=== PATIENT | female | born 1960 | race Caucasian/White ===

== ENCOUNTER 2018-10-30 12:51 | Observation (INO) ==
--- NOTE | 2018-10-30 13:29 | History & Physical Report ---
*Admission Date: 10/30/18 *Chief complaint: chest pain *History of present illness: this 58 yo wf dev chest pain and was seen at another hospital and was admitted with unstable angina and had elevated cardiac enz consistent with nonstemi - she was discussed with her card and transfered to [facility] for card eval and heart cath -- [facility] History I have reviewed the patient's past medical history: Yes Medical History: Reports:: Coronary Artery Disease, Diabetes Mellitus Type 2, Gastroesophageal Reflux Disease(GERD), Hyperlipidemia, Hypertension, Migraine, Peripheral Artery Disease Have you ever received a pneumonia vaccine?: Yes Other Surgeries: Yes: CABG (x5), Cardiac Catheterization (06/29/16 1 stent, 2013, 2011, 2010 stenting, 1998 stenting) - *Social History Smoking Status: Never smoker Alcohol Intake: never Family Hx:: Diabetes Review of Systems - Review of Systems Review of systems:: pertinent systems reviewed and negative unless documented below - Constitutional Denies fever(s) - Eyes Denies change in vision - ENT Denies change in voice - *Cardiovascular Reports chest pain at rest, Reports shortness of breath, Reports radiating jaw, neck or arm pain - *Respiratory Denies cough - *Gastrointestinal Denies abdominal pain - *Genitourinary Denies blood in urine - *Musculoskeletal Denies joint pain - Integumentary/Breasts Denies rash - *Neurologic Denies seizure-like activity - Psychiatric Denies anxiety Meds Home Medications Medication Instructions Recorded Confirmed Type albuterol sulfate HFA 90 2 puff INHALATION Q4-6H PRN 01/07/18 10/31/18 History mcg/actuation aerosol inhaler aspirin 81 mg tablet,delayed 81 mg PO DAILY tab 01/07/18 10/30/18 History release atorvastatin 80 mg tablet 80 mg PO HS tab 01/07/18 10/30/18 History carvedilol 3.125 mg tablet 3.125 mg PO BID 01/07/18 10/30/18 History clopidogrel 75 mg tablet 75 mg PO DAILY tab 01/07/18 10/30/18 History fenofibrate 160 mg tablet 160 mg PO DAILY tab 01/07/18 10/30/18 History gabapentin 300 mg capsule 300 mg PO TID 01/07/18 10/30/18 History isosorbide mononitrate ER 60 mg 60 mg PO DAILY 01/07/18 10/30/18 History tablet,extended release 24 hr loratadine 10 mg tablet 10 mg PO DAILY tab 01/07/18 10/30/18 History losartan 50 mg tablet 50 mg PO DAILY tab 01/07/18 10/30/18 History metformin 500 mg tablet 1,000 mg PO BID 01/07/18 10/30/18 History nitroglycerin 0.4 mg sublingual 0.4 mg SUBLINGUAL Q5M PRN 01/07/18 10/31/18 History tablet omeprazole 40 mg capsule,delayed 40 mg PO DAILY cap 01/07/18 10/30/18 History release potassium chloride ER 10 mEq 10 meq PO DAILY tab 01/07/18 10/30/18 History tablet,extended release Allopurinol [Allopurinol 300mg 300 mg PO DAILY 10/30/18 10/30/18 History tablet] Ertugliflozin Pidolate [Steglatro] 15 mg PO DAILY 10/30/18 10/30/18 History Naproxen Sodium [Naprelan] 500 mg PO BID 10/30/18 10/30/18 History raNITIdine HCl [Ranitidine HCl] 150 mg PO BID 10/30/18 10/30/18 History Allergies Allergy/AdvReac Type Severity Reaction Status Date / Time lisinopril AdvReac Verified 06/29/18 12:38 Sulfa (Sulfonamide AdvReac Verified 06/29/18 12:38 Antibiotics) Exam I & O for Last 24 hours: Intake & Output 10/28/18 10/29/18 10/30/18 10/31/18 11:59 11:59 11:59 11:59 Weight 221 lb 5 oz - Constitutional no acute distress, obese - *Routine HEENT Exam Head: Present: normocephalic Eye: Present: EOMI, PERRL ENT: Present: mucous membranes dry - *Routine Neck Exam Present: supple - *Routine Respiratory Exam Present: CTA bilaterally - *Routine Cardiovascular Exam Present: RRR, murmur, S4 - *Routine Abdominal Exam Present: soft - *Routine Extremities Exam Present: full ROM. Absent: calf tenderness - *Routine Skin Exam Present: intact - *Routine Neurological Exam Present: alert, oriented X3, CN II-XII intact - Routine Psychiatric Exam Present: normal affect Assessment and Plan (1) Obesity Current visit: Yes Status: Acute Qualifiers: Obesity type: due to excess calories Obesity classification: adult class 3 (BMI >= 40) Serious obesity comorbidity presence: with serious comorbidity Body mass index: BMI 40.0-44.9 Qualified Code(s): E66.01 - Morbid (severe) obesity due to excess calories; Z68.41 - Body mass index (BMI) 40.0-44.9, adult Category: Medical Code(s): E66.9 - Obesity, unspecified (2) NSTEMI (non-ST elevated myocardial infarction) Current visit: Yes Status: Acute Category: Medical Code(s): I21.4 - Non-ST elevation (NSTEMI) myocardial infarction (3) Diabetes Current visit: Yes Status: Acute Category: Medical Code(s): E11.9 - Type 2 diabetes mellitus without complications
[2018-10-31 06:24] LABS: Basophils % 0.4 % (0.1-2.0); Eosinophils # 0.3 K/mm3 (0.0-0.4); Eosinophils % 3.3 % (0.1-12.0); Hematocrit 37.9 % (37.0-47.0); Hemoglobin 11.9 g/dL (12.2-16.2); Lymphocytes # 1.7 K/mm3 (0.7-4.5); Lymphocytes % 18.4 % (10-50); Mean Corpuscular HGB Conc 31.4 g/dL (31.8-35.4); Mean Corpuscular Hemoglobin 25.3 pg (27.0-31.2); Mean Corpuscular Volume 80.5 fl (81-99); Mean Platelet Volume 7.1 fl (7.4-10.4); Monocytes # 0.4 K/mm3 (0.1-1.0); Monocytes % 4.1 % (1.7-9.3); Neutrophils % 73.8 % (37.0-80.0); Platelet Count 228 K/mm3 (142-424); Red Cell Distribution Width 15.8 % (11.5-17.5); White Blood Count 9.5 K/mm3 (4.8-10.8)
[2018-10-31 06:44] LABS: Anion Gap 10.6 mEq/L (5-15); Calcium 8.9 mg/dL (8.5-10.1); Potassium 3.6 mmoL/L (3.5-5.1)
--- NOTE | 2018-10-31 07:45 | Pharmacy Consult Notes ---
[facility] Pharmacy VTE Monitoring - Patient Demographics Admission date: 10/30/18 Report Date: 10/31/18 Time: 07:45 Allergies/Adverse Reactions: Patient Allergies lisinopril Adverse Reaction (Verified 06/29/18 12:38) Sulfa (Sulfonamide Antibiotics) Adverse Reaction (Verified 06/29/18 12:38) Height: 1.57 m Weight: 100.499 kg - VTE Risk Labs: VTE Related Lab Results Hgb 11.9 g/dL (12.2-16.2) L 10/31/18 05:50 Hct 37.9 % (37.0-47.0) 10/31/18 05:50 Plt Count 228 K/mm3 (142-424) 10/31/18 05:50 BUN 22 mg/dL (7-18) H 10/31/18 05:50 Creatinine 0.90 mg/dL (0.55-1.02) 10/31/18 05:50 Estimated Creat Clear 105 mL/min (50-200) 10/31/18 05:50 Was VTE Risk Assessment Performed: Yes VTE Score: 2 VTE Risk Level: Very Low Risk Clinical Trial Participant: No - Prophylaxis VTE Prophylaxis Ordered?: Yes Types of VTE Prophylaxis: TEDS Knee High Location of Applied Device: Bilateral Lower Extremeties
--- NOTE | 2018-10-31 07:54 | Consult Report ---
Addendum entered and electronically signed by GABRIELLE Floyd 10/31/18 14:19: Cardiac cath showed CAD for which medical therapy recommended. Pt's BP elevated today but she did not receive home meds. Recommend resume home meds(aspirin 80 mg daily, Plavix 75 mg daily, isosorbide mononitrate 60 mg ER daily, Ranexa 1000 mg twice daily, carvedilol 3.125 mg twice daily, losartan 50 mg daily, fenofibrate 160 mg daily, atorvastatin 80 mg by and omeprazole 40 mg daily in addition to home medications for diabetes and pain control), follow BP and adjust meds as needed. OK for discharge home later today or in AM from Cardiology standpoint. Follow up in our office in 1 week. Original Note: History of Present Illness Consult date: 10/31/18 Requesting physician: Diego Forrester Consult reason: chest pain Chief complaint: chest pain Additional Medical History:: 1. Coronary artery disease A. History of 5 vessel coronary artery bypass grafting approximately 2004 B. Drug-eluting stent to ramus intermedius, 2015 C. Drug-eluting stent to circumflex, 2016 2. Diabetes mellitus 3. Hypertension 4. Hyperlipidemia 5. Obesity History of present illness: 58-year-old white female with onset of right arm and chest discomfort while at rest. Patient was seen in the emergency department in [place] treated with IV morphine and transdermal nitroglycerin with resolution of symptoms. Transferred to [facility] for further evaluation. Reportedly noted to have elevated troponins. No further chest pain. EKG shows sinus rhythm with poor R wave progression anteriorly and nonspecific ST-T abnormalities. Cardiology consulted for evaluation recommendations. Patient denies any recent nausea, vomiting, fever chills or diarrhea. No exertional CP or SOA symptoms recently. [facility] History Medical History: Reports:: Coronary Artery Disease, Diabetes Mellitus Type 2, Gastroesophageal Reflux Disease(GERD), Hyperlipidemia, Hypertension, Migraine, Peripheral Artery Disease Denies:: Cancer, MRSA Have you ever received a pneumonia vaccine?: Yes Have you received a flu vaccine this season?: Yes Other Surgeries: Yes: CABG (x5), Cardiac Catheterization (06/29/16 1 stent, 2013, 2011, 2010 stenting, 1998 stenting) Amputation: No Fractures: No - *Social History Educational Level: Completed High School Smoking Status: Never smoker Alcohol Intake: never Occupational Status: retired Housing: house Household Members: spouse, children Travel in the last 8 weeks: None - Psychiatric History Expresses thoughts of harming self/others: None Suicide Plan Description: No Plan Family Hx:: Diabetes Meds Home Medications Medication Instructions Recorded Confirmed Type albuterol sulfate HFA 90 2 puff INHALATION Q4-6H PRN 01/07/18 06/29/18 History mcg/actuation aerosol inhaler aspirin 81 mg tablet,delayed 81 mg PO DAILY tab 01/07/18 10/30/18 History release atorvastatin 80 mg tablet 80 mg PO HS tab 01/07/18 10/30/18 History carvedilol 3.125 mg tablet 3.125 mg PO BID 01/07/18 10/30/18 History clopidogrel 75 mg tablet 75 mg PO DAILY tab 01/07/18 10/30/18 History fenofibrate 160 mg tablet 160 mg PO DAILY tab 01/07/18 10/30/18 History fluticasone 50 mcg/actuation nasal 2 spray INTRANASAL DAILY g 01/07/18 06/29/18 History spray,suspension gabapentin 300 mg capsule 300 mg PO TID 01/07/18 10/30/18 History isosorbide mononitrate ER 60 mg 60 mg PO DAILY 01/07/18 10/30/18 History tablet,extended release 24 hr loratadine 10 mg tablet 10 mg PO DAILY tab 01/07/18 10/30/18 History losartan 50 mg tablet 50 mg PO DAILY tab 01/07/18 10/30/18 History metformin 500 mg tablet 1,000 mg PO BID 01/07/18 10/30/18 History nitroglycerin 0.4 mg sublingual 0.4 mg SUBLINGUAL Q5M PRN 01/07/18 06/29/18 History tablet omeprazole 40 mg capsule,delayed 40 mg PO DAILY cap 01/07/18 10/30/18 History release potassium chloride ER 10 mEq 10 meq PO DAILY tab 01/07/18 10/30/18 History tablet,extended release ranolazine ER 1,000 mg 1,000 mg PO Q12H PRN 01/07/18 History tablet,extended release,12 hr Allopurinol [Allopurinol 300mg 300 mg PO DAILY 10/30/18 10/30/18 History tablet] Ertugliflozin Pidolate [Steglatro] 15 mg PO DAILY 10/30/18 10/30/18 History Naproxen Sodium [Naprelan] 500 mg PO BID 10/30/18 10/30/18 History raNITIdine HCl [Ranitidine HCl] 150 mg PO BID 10/30/18 10/30/18 History Allergies Allergy/AdvReac Type Severity Reaction Status Date / Time lisinopril AdvReac Verified 06/29/18 12:38 Sulfa (Sulfonamide AdvReac Verified 06/29/18 12:38 Antibiotics) Review of Systems - *Cardiovascular Reports chest pain, Denies shortness of breath, Denies foot swelling - *Respiratory Denies cough, Denies shortness of breath - *Gastrointestinal Denies abdominal pain, Denies change in bowel habits - *Genitourinary Denies difficulty urinating, Denies painful urination - *Musculoskeletal Denies joint pain Exam Vital signs and Labs for Last 24 Hours: Temp Pulse Resp BP Pulse Ox 97.9 F 79 20 150/83 H 93 L 10/31/18 04:00 10/31/18 04:00 10/31/18 04:00 10/31/18 04:00 10/31/18 04:00 Laboratory Results - last 24 hr 10/30/18 16:12: POC Glucose 143 H 10/30/18 21:15: POC Glucose 149 H 10/31/18 05:50: WBC 9.5, RBC 4.70, Hgb 11.9 L, Hct 37.9, MCV 80.5 L, MCH 25.3 L, MCHC 31.4 L, RDW 15.8, Plt Count 228, MPV 7.1 L, Neut % (Auto) 73.8, Lymph % (Auto) 18.4, [place] % (Auto) 4.1, Eos % (Auto) 3.3, Baso % (Auto) 0.4, Neut # (Auto) 7.0, Lymph # (Auto) 1.7, [place] # (Auto) 0.4, Eos # (Auto) 0.3, Baso # (Auto) 0.0 10/31/18 05:50: Sodium 144, Potassium 3.6, Chloride 107, Carbon Dioxide 30, Anion Gap 10.6, BUN 22 H, Creatinine 0.90, Estimated Creat Clear 105, Estimated GFR 64, Est GFR ( Amer) 77, Glucose 121 H, Calcium 8.9, Magnesium 1.7, Triglycerides 124, Cholesterol 150, LDL Cholesterol 95, VLDL Cholesterol 25, HDL Cholesterol 30, Cholesterol/HDL Ratio 5.0 H 10/31/18 06:26: POC Glucose 97 I & O for Last 24 hours: Intake & Output 10/28/18 10/29/18 10/30/18 10/31/18 11:59 11:59 11:59 11:59 Intake Total 720 / 720 Balance 720 / 720 Weight 221 lb 9 oz - *Routine HEENT Exam Head: Present: normocephalic Eye: Present: EOMI, PERRL ENT: Present: mucous membranes moist - *Routine Neck Exam Present: supple. Absent: JVD, carotid bruit - *Routine Respiratory Exam Present: CTA bilaterally. Absent: accessory muscle use, rales, rhonchi, wheezes - *Routine Cardiovascular Exam Present: RRR. Absent: murmur, gallop, rubs - *Routine Abdominal Exam Present: soft. Absent: tenderness, distended, guarding - *Routine Extremities Exam Absent: edema, calf tenderness - *Routine Neurological Exam Present: alert, oriented X3, moving all extremities Assessment and Plan (1) NSTEMI (non-ST elevated myocardial infarction) Current visit: Yes Status: Acute Category: Medical Code(s): I21.4 - Non-ST elevation (NSTEMI) myocardial infarction (2) Diabetes Current visit: Yes Status: Acute Category: Medical Code(s): E11.9 - Type 2 diabetes mellitus without complications (3) History of coronary artery bypass graft Current visit: Yes Status: Acute Category: Surgical Code(s): Z95.1 - Presence of aortocoronary bypass graft (4) HLD (hyperlipidemia) Current visit: No Status: Chronic Qualifiers: Hyperlipidemia type: mixed hyperlipidemia Qualified Code(s): E78.2 - Mixed hyperlipidemia Category: Medical Code(s): E78.5 - Hyperlipidemia, unspecified (5) Hypertensive heart disease Current visit: No Status: Chronic Category: Medical Code(s): I11.9 - Hypertensive heart disease without heart failure - Assessment and plan all Dx Assessment and Plan for all problems:: 1. Proceed with C with grafts today for NSTEMI. 2. Resume home meds of ASA, plavix, coreg, atorvastatin, fenofibrate and losartan. 3. Further recommendations to follow after cardiac cath.
--- NOTE | 2018-10-31 16:45 | Discharge Summary ---
General - General Admission date:: 10/30/18 Discharge date: 10/31/18 HPI HPI: this 58 yo wf dev chest pain and was seen at another hospital and was admitted with unstable angina and had elevated cardiac enz consistent with nonstemi - she was discussed with her card and transfered to [facility] for card eval and heart cath -- Hospital Course Hospital Course: this wf remained stable and no chest pain - she was seen by card - . Coronary artery disease A. History of 5 vessel coronary artery bypass grafting approximately 2004 B. Drug-eluting stent to ramus intermedius, 2015 C. Drug-eluting stent to circumflex, 2016 2. Diabetes mellitus 3. Hypertension 4. Hyperlipidemia 5. Obesity 58-year-old white female with onset of right arm and chest discomfort while at rest. Patient was seen in the emergency department in [place] treated with IV morphine and transdermal nitroglycerin with resolution of symptoms. Transferred to [facility] for further evaluation. Reportedly noted to have elevated troponins. No further chest pain. EKG shows sinus rhythm with poor R wave progression anteriorly and nonspecific ST-T abnormalities. Cardiology consulted for evaluation recommendations. Patient denies any recent nausea, vomiting, fever chills or diarrhea. No exertional CP or SOA symptoms recently. The left main artery has distal 30% stenosis 2. The left anterior descending artery is ostially occluded 3. The circumflex artery is a large vessel giving rise to 3 obtuse marginal arteries. The first obtuse marginal artery is a 2.25 mm vessel and has proximal 50% followed by mid vessel 70-80% stenosis. The second obtuse marginal artery has an ostial 90% stenosis and is 2.25 mm in diameter. The third obtuse marginal artery has distal 30% stenosis 4. The right coronary artery ostially occluded 5. The STINSON ventriculogram reveals preserved at 55% 6. The left ventricular end-diastolic pressure 20 mmHg 7. The left internal mammary artery is widely patent with stents in the proximal through distal segment all in a contiguous manner. It anastomoses on the LAD which then has a 50% stenosis distal to the anastomosis 8. The saphenous vein graft to the first diagonal artery is a widely patent graft. The diagonal artery then backfills the LAD which then goes through a very large septal network of collaterals which provides flow to the distal right coronary artery 9. The saphenous vein graft to the right coronary artery ostially occluded IMPRESSION: 1. Coronary artery disease as described above 2. Preserved ejection fraction 3. Mildly elevated LVEDP PLAN: 1. I strongly favor medical management. Patient needs much higher doses of beta blockers with a target heart rate in the mid to low 60s. 2. Better blood pressure control to be achieved also with beta blockers and calcium channel blockers. 3. Antianginal medications with Ranexa and long-acting nitrates 4. Although the circumflex artery could be stented this would be a bifurcating stent in the first and second obtuse marginal artery which would have a high likelihood of in-stent restenosis. I strongly believe patient's coronary arteries would best be managed medically. If recalcitrant angina continues despite maximizing medical management only then would I consider revascularizing the vessels as described 5. Avoidance of tobacco products rdiac cath showed CAD for which medical therapy recommended. Pt's BP elevated today but she did not receive home meds. Recommend resume home meds(aspirin 80 mg daily, Plavix 75 mg daily, isosorbide mononitrate 60 mg ER daily, Ranexa 1000 mg twice daily, carvedilol 3.125 mg twice daily, losartan 50 mg daily, fenofibrate 160 mg daily, atorvastatin 80 mg by and omeprazole 40 mg daily in addition to home medications for diabetes and pain control), follow BP and adjust meds as needed. OK for discharge home later today or in AM from Cardiology standpoint. Follow up in our office in 1 week. she will follow up with pcp and card as op Objective Vital signs: Temp Pulse Resp BP Pulse Ox 98 F 72 20 149/84 H 96 10/31/18 12:16 10/31/18 12:50 10/31/18 12:50 10/31/18 12:50 10/31/18 12:50 no acute distress, obese - *Routine HEENT Exam Head: Present: normocephalic Eye: Present: EOMI, PERRL ENT: Present: mucous membranes dry - *Routine Neck Exam Present: supple. Absent: JVD - *Routine Respiratory Exam Present: CTA bilaterally - *Routine Cardiovascular Exam Present: RRR, murmur, S4 - *Routine Abdominal Exam Present: soft - *Routine Extremities Exam Present: edema, full ROM. Absent: calf tenderness - *Routine Skin Exam Present: intact - *Routine Neurological Exam Present: alert, oriented X3, CN II-XII intact - Routine Psychiatric Exam Present: normal affect Results Labs on day of discharge: Labs from last 24 hours 10/31/18 10/31/18 10/31/18 06:26 05:50 05:50 WBC 9.5 RBC 4.70 Hgb 11.9 L Hct 37.9 MCV 80.5 L MCH 25.3 L MCHC 31.4 L RDW 15.8 Plt Count 228 MPV 7.1 L Neut % (Auto) 73.8 Lymph % (Auto) 18.4 [place] % (Auto) 4.1 Eos % (Auto) 3.3 Baso % (Auto) 0.4 Neut # (Auto) 7.0 Lymph # (Auto) 1.7 [place] # (Auto) 0.4 Eos # (Auto) 0.3 Baso # (Auto) 0.0 Sodium 144 Potassium 3.6 Chloride 107 Carbon Dioxide 30 Anion Gap 10.6 BUN 22 H Creatinine 0.90 Estimated Creat Clear 105 Estimated GFR 64 Est GFR ( Amer) 77 Glucose 121 H POC Glucose 97 Calcium 8.9 Magnesium 1.7 Triglycerides 124 Cholesterol 150 LDL Cholesterol 95 VLDL Cholesterol 25 HDL Cholesterol 30 Cholesterol/HDL Ratio 5.0 H 10/30/18 10/30/18 21:15 16:12 WBC RBC Hgb Hct MCV MCH MCHC RDW Plt Count MPV Neut % (Auto) Lymph % (Auto) [place] % (Auto) Eos % (Auto) Baso % (Auto) Neut # (Auto) Lymph # (Auto) [place] # (Auto) Eos # (Auto) Baso # (Auto) Sodium Potassium Chloride Carbon Dioxide Anion Gap BUN Creatinine Estimated Creat Clear Estimated GFR Est GFR ( Amer) Glucose POC Glucose 149 H 143 H Calcium Magnesium Triglycerides Cholesterol LDL Cholesterol VLDL Cholesterol HDL Cholesterol Cholesterol/HDL Ratio DS: Diagnosis - Discharge Diagnosis (1) Obesity Status: Acute (2) NSTEMI (non-ST elevated myocardial infarction) Status: Acute (3) Diabetes Status: Acute Discharge Plan - Patient Discharge Instructions ACTIVITY: Continue current activity DIET: continue same diet Patient Instructions: DI for Heart Attack - Follow up Plan Disposition: Home, Self-Nursing Home Medications: Home Medications Medication Instructions Recorded Confirmed Type albuterol sulfate HFA 90 2 puff INHALATION Q4-6H PRN 01/07/18 10/31/18 History mcg/actuation aerosol inhaler aspirin 81 mg tablet,delayed 81 mg PO DAILY tab 01/07/18 10/30/18 History release atorvastatin 80 mg tablet 80 mg PO HS tab 01/07/18 10/30/18 History carvedilol 3.125 mg tablet 3.125 mg PO BID 01/07/18 10/30/18 History clopidogrel 75 mg tablet 75 mg PO DAILY tab 01/07/18 10/30/18 History fenofibrate 160 mg tablet 160 mg PO DAILY tab 01/07/18 10/30/18 History gabapentin 300 mg capsule 300 mg PO TID 01/07/18 10/30/18 History isosorbide mononitrate ER 60 mg 60 mg PO DAILY 01/07/18 10/30/18 History tablet,extended release 24 hr loratadine 10 mg tablet 10 mg PO DAILY tab 01/07/18 10/30/18 History losartan 50 mg tablet 50 mg PO DAILY tab 01/07/18 10/30/18 History metformin 500 mg tablet 1,000 mg PO BID 01/07/18 10/30/18 History nitroglycerin 0.4 mg sublingual 0.4 mg SUBLINGUAL Q5M PRN 01/07/18 10/31/18 History tablet omeprazole 40 mg capsule,delayed 40 mg PO DAILY cap 01/07/18 10/30/18 History release potassium chloride ER 10 mEq 10 meq PO DAILY tab 01/07/18 10/30/18 History tablet,extended release Allopurinol [Allopurinol 300mg 300 mg PO DAILY 10/30/18 10/30/18 History tablet] Ertugliflozin Pidolate [Steglatro] 15 mg PO DAILY 10/30/18 10/30/18 History Naproxen Sodium [Naprelan] 500 mg PO BID 10/30/18 10/30/18 History raNITIdine HCl [Ranitidine HCl] 150 mg PO BID 10/30/18 10/30/18 History Prescriptions/Medication Reconciliation: New Aspirin [Aspirin 81mg chewable tab] 81 mg PO DAILY tab.chew Clopidogrel Bisulfate [Plavix 75mg Tab] 75 mg PO DAILY tablet Irbesartan [Avapro 75mg tablet] 75 mg PO DAILY tablet Isosorbide Mononitrate [Imdur 60mg ER tablet] 60 mg PO DAILY tab.er.24h Pantoprazole Sodium [Protonix 40mg tablet] 40 mg PO DAILY tablet. Ranolazine [Ranexa 500mg ER tablet] 1,000 mg PO BID tab.er.12h Carvedilol [Coreg 3.125mg Tablet] 3.125 mg PO BID tablet Continue aspirin 81 mg tablet,delayed release 81 mg PO DAILY tab atorvastatin 80 mg tablet 80 mg PO HS tab fenofibrate 160 mg tablet 160 mg PO DAILY tab isosorbide mononitrate ER 60 mg tablet,extended release 24 hr 60 mg PO DAILY potassium chloride ER 10 mEq tablet,extended release 10 meq PO DAILY tab loratadine 10 mg tablet 10 mg PO DAILY tab losartan 50 mg tablet 50 mg PO DAILY tab metformin 500 mg tablet 1,000 mg PO BID gabapentin 300 mg capsule 300 mg PO TID nitroglycerin 0.4 mg sublingual tablet 0.4 mg SUBLINGUAL Q5M PRN PRN Reason: Chest Pain omeprazole 40 mg capsule,delayed release 40 mg PO DAILY cap clopidogrel 75 mg tablet 75 mg PO DAILY tab albuterol sulfate HFA 90 mcg/actuation aerosol inhaler 2 puff INHALATION Q4- 6H PRN PRN Reason: breathing problems carvedilol 3.125 mg tablet 3.125 mg PO BID raNITIdine HCl [Ranitidine HCl] 150 mg PO BID Allopurinol [Allopurinol 300mg tablet] 300 mg PO DAILY Ertugliflozin Pidolate [Steglatro] 15 mg PO DAILY Discontinued Naproxen Sodium [Naprelan] 500 mg PO BID
--- NOTE | 2018-10-31 20:12 | Cardiology Report ---
PROCEDURE: 2-D M-mode and color Doppler study INDICATIONS FOR THE TEST: Chest pain X COPD Heart Murmur Tobacco Smoking Palpitations Fatigue Syncope Edema HypertensionXDiabetes MellitusX Rheumatic Fever SOB BRITO ObesityXHyperlipidemiaX Family History HD Additional History CAD,STENTS,CABG,PAD PATIENT INFORMATION HEIGHT: 62 WEIGHT:221 GENDER: Female B/P:132/79 2-D/M-MODE INTERPRETATION: 2-D MEASUREMENTS OBSERVED VALUES IN CMS Right Ventricular Dimension (RVDd) 1.7 Interventricular Septum (Thickness)(IVsd) .9 Left Ventricular Internal Dimensions(LVIDd) 5.2 Left Ventricular Posterior Wall (Thickness)(LVPWd) 1.2 Aortic Root 3.5 Aortic Cusp Separation 1.7 Left Atrial Dimensions (LAD) 3.9 2D 1. Left atrium is mildly enlarged, left ventricle is normal size, mild concentric left ventricular hypertrophy, visually estimated ejection fraction 55% with no regional wall motion abnormality. 2. The right atrium and right ventricle are mildly enlarged with normal contractility. 3. The aortic valve is minimally thickened and fibrosed. 4. The mitral and tricuspid valve leaflets are minimally thickened. 5. The pulmonic valve is poorly visualized. 6. No significant pericardial effusion noted. DOPPLER INTERROGATION: The Doppler interrogation of the aortic, mitral and tricuspid valvular presence of mild to moderate mitral and mild tricuspid regurgitation, tricuspid regurgitation jet velocity is inadequate for calculation of the right ventricular systolic pressure, grade 1 diastolic dysfunction seen with tissue Doppler evidence of raised left atrial pressure. CONCLUSION: 1. Mildly enlarged left atrium, normal left ventricular size, mild concentric left ventricular hypertrophy, visually estimated ejection fraction 55% with no regional wall motion abnormality, grade 1 diastolic dysfunction seen with tissue Doppler evidence of raised left atrial pressure. 2. Mild to moderate mitral and mild tricuspid regurgitation 3. No significant pericardial effusion noted.
== END 2018-10-31 18:54 | disposition home or self-care (01) ==
LOC: 2ND
PROVIDERS: ADMIT Emergency Medicine; ATTEND Emergency Medicine
CPT/HCPCS: 36415; 71010; 71045; 80048; 80061; 82962; 83735; 85025; 93005; 93306; 93459; 99152; C1725; C1769; C1894; G0378; J1644; Q9967

== ENCOUNTER 2018-11-17 07:48 | Outpatient (RCR) | payer MEDICAID, SELFPAY | END 2018-12-22 13:24 | disposition home or self-care (01) | LOC: PT 07:48 | PROVIDERS: Visit Provider Internal Medicine | DX: I25.10 Atherosclerotic heart disease of native coronary artery without angina pectoris (principal); Z95.1 Presence of aortocoronary bypass graft ==

== ENCOUNTER → 2018-11-17 08:22 | Outpatient (CLI) | payer MEDICAID, SELFPAY ==
--- NOTE | 2018-11-17 08:24 | CI_ITS ---
Cerebrovascular Exam Indications: 433.10 Occlusion/stenosis of carotid artery without cerebral infarction. IMPRESSIONS 1. The bilateral vertebral arteries are patent with normal antegrade flow. 2. Study suggests less than 20% stenosis involving the right internal carotid artery and the left internal carotid artery. 3. Tortuous carotid arteries seen bilaterally. History: Risk factors: Hypertension. Carotid duplex study. Complete study and Doppler flow study including spectral analysis, color and marion scale imaging. Height: Height: 157.5cm. Height: 62in. Weight: Weight: 100.2kg. Weight: 220.5lb. Body mass index: BMI: 40.4kg/m^2. Body surface area: BSA: 2.15m^2. Location: Vascular laboratory. Patient status: Outpatient. Tables: Arterial flow: + +--------+--------+ Location V sys V ed + +--------+--------+ Right CCA - proximal 56.6cm/s 16.5cm/s + +--------+--------+ Right CCA - distal 65.2cm/s 22.8cm/s + +--------+--------+ Right ECA 113cm/s -------- + +--------+--------+ Right ICA - proximal 84.9cm/s 29.1cm/s + +--------+--------+ Right ICA - mid 57.4cm/s 23.6cm/s + +--------+--------+ Right ICA - distal 74.2cm/s 25.4cm/s + +--------+--------+ Right vertebral 36.1cm/s -------- + +--------+--------+ Left CCA - proximal 139cm/s 16.5cm/s + +--------+--------+ Left CCA - distal 66.8cm/s 19.6cm/s + +--------+--------+ Left ECA 82.5cm/s -------- + +--------+--------+ Left ICA - proximal 66.8cm/s 28.3cm/s + +--------+--------+ Left ICA - mid 66.8cm/s 29.1cm/s + +--------+--------+ Left ICA - distal 65.3cm/s 25.3cm/s + +--------+--------+ Left vertebral 24.4cm/s -------- + +--------+--------+ Velocity ratios: + + + + + + Right, V sys Right, V ed Left, V sys Left, V ed + + + + + + Max ICA/dist CCA 1.3 1.28 1 1.48 + + + + + + (Report amended ) Electronically signed by: Omkar Covintgon [id number]
== END ==
PROVIDERS: PCP Family Medicine; Visit Provider Internal Medicine
DX: I65.23 Occlusion and stenosis of bilateral carotid arteries (principal); E11.8 Type 2 diabetes mellitus with unspecified complications; E66.01 Morbid (severe) obesity due to excess calories; E78.2 Mixed hyperlipidemia; I11.9 Hypertensive heart disease without heart failure; I25.10 Atherosclerotic heart disease of native coronary artery without angina pectoris; Z95.1 Presence of aortocoronary bypass graft
CPT/HCPCS: 93880

== ENCOUNTER → 2020-08-30 07:34 | Outpatient (CLI) | payer MEDICAID, SELFPAY ==
--- NOTE | 2020-08-30 07:41 | CA_ITS ---
APPROVED REPORT EXAM: Comprehensive 2D, Doppler, and color-flow Echocardiogram District Service Manager: Aubree Salcedo CRT Ht: 5 ft 2 in Wt: 227lbs BSA: 2.02 BP: 137/78 mmHg Indications: CABG, Stents, HTN, HLD, PAD, CT, CAD, MR, DM 2D Dimensions LVOT 1.80 cm (M/F) 1.5-2.5 M-Mode Dimensions RVDd 2.50 cm (0.9-2.6) LA Diam 4.80 cm (1.9-4.0) LVDd 4.90 cm (3.5-5.7) Ao Diam 3.80 cm (2.0-3.7) LVDs 3.30 cm (3.5-5.7) AV Cusp 2.00 cm (1.5-2.6) IVSd 2.20 cm (0.6-1.1) PWd 0.90 cm (0.6-1.1) EF (Teich) 61.00% FS 32.70% EDV (Teich) 113.00 mL ESV (Teich) 44.10 mL LV Diastology E/A Ratio 0.90 MED E' 5.36 (< 7 cm/sec) E'/MED E' Ratio 15.10 (>14) LAT E' 7.41 (<10 cm/sec) E/LAT E' Ratio 10.90 (>14) Aortic Valve AoV Peak Zach. 171.00 (50-130 cm/s) AI PHT 737.00 ms AO Peak GR. 12.00 mmHg Mitral Valve MV E Max Zach. 80.90 (40-130 cm/s) MV A Velocity 94.80 (40-130 cm/s) E/A Ratio 0.90 Pulmonary Valve IL End VMAX 144.00 cm/s PA Accel Time 106.00 (>120 msec) Tricuspid Valve TR P. Velocity 217.00 cm/s RAP Estimate 10.00 mmHg RVSP 29.00 mmHg Left Ventricle Left atrium is mildly enlarged, left ventricle is normal size, mild concentric left ventricular hypertrophy, visually estimated ejection fraction 55% with no regional wall motion abnormality, grade 1 diastolic dysfunction seen with tissue Doppler evidence of raise left atrial pressure. Right Ventricle Right atrium and right ventricle are normal size and contractility. Aortic Valve Aortic valve is minimally thickened and fibrosed, there is no aortic stenosis, there is mild aortic insufficiency. Mitral Valve Mitral valve leaflets are minimally thickened, there is no mitral stenosis, there is mild mitral regurgitation. Tricuspid Valve Tricuspid valve grossly normal, there is mild tricuspid regurgitation, tricuspid regurgitation jet velocity is inadequate for calculation of the right ventricular systolic pressure. Pulmonic Valve Pulmonic valve is poorly visualized. Great Vessels Aortic root is normal size. Pericardium No significant pericardial effusion noted. Conclusion 1. Mildly enlarged left atrium, normal left ventricular size, mild concentric left ventricular hypertrophy, visually estimated ejection fraction 55% with no regional wall motion abnormality, endocardial surfaces are poorly visualized, grade 1 diastolic dysfunction seen with tissue Doppler evidence of raise left atrial pressure. 2. Thickened and calcified aortic valve without aortic stenosis, there is mild aortic insufficiency. 3. Mild mitral and tricuspid regurgitation. 4. No significant pericardial effusion noted. Electronically signed by : Skinny Chamorro, 08/30/2020 13:33:10
== END ==
PROVIDERS: PCP Nurse Practitioner Family; Visit Provider Nurse Practitioner Family
DX: R06.02 Shortness of breath (principal)
CPT/HCPCS: 93306

== ENCOUNTER → 2021-08-26 11:03 | Outpatient (CLI) | payer MEDICAID, SELFPAY ==
[2021-08-26 11:28] LABS: Basophils # 0.1 K/mm3 (0-0.2); Basophils % 1.1 % (0.1-2.0); Eosinophils # 0.4 K/mm3 (0.0-0.4); Hemoglobin 13.5 g/dL (12.2-16.2); Lymphocytes # 1.9 K/mm3 (0.7-4.5); Lymphocytes % 21.8 % (10-50); Mean Corpuscular Hemoglobin 26.8 pg (27.0-31.2); Mean Corpuscular Volume 81.2 fl (81-99); Mean Platelet Volume 8.1 fl (7.4-10.4); Monocytes # 0.5 K/mm3 (0.1-1.0); Monocytes % 5.2 % (1.7-9.3); Neutrophils % 67.9 % (37.0-80.0); Platelet Count 286 K/mm3 (142-424); Red Blood Count 5.05 M/mm3 (4.20-5.40); Red Cell Distribution Width 15.3 % (11.5-17.5); White Blood Count 8.8 K/mm3 (4.8-10.8)
[2021-08-26 11:51] LABS: Alanine Aminotransferase 23 U/L (12-78); Albumin Level 4.3 g/dl (3.5-5.0); Alkaline Phosphatase 52 U/L (38-126); Aspartate Amino Transferase 28 U/L (14-36); Bilirubin,Direct 0.1 mg/dl (0.0-0.4); Bilirubin,Indirect 0.3 mg/dL (0.0-0.9); Bilirubin,Total 0.4 mg/dl (0.2-1.3); Bilirubin,Unconjugated 0.3 mg/dL (0.0-1.1); Blood Urea Nitrogen 17 mg/dl (7-17); Calcium 9.8 mg/dl (8.4-10.2); Carbon Dioxide 31 mmol/L (22.0-30.0); Chloride 104 mmol/L (98-107); Chol/HDL Ratio 3.7 (1-3.5); Cholesterol 146 mg/dl (140-200); Estimated Glomerular Filt Rate 72 ml/min (>60); GFR (African American) 88 ML/MIN (>60); Glucose 113 mg/dl (74-100); HDL Cholesterol 40 mg/dl (40-60); Sodium 141 mmol/L (136-145); Total Protein,Serum 7.2 g/dl (6.3-8.2); Triglycerides 140 mg/dl (30-150); VLDL Cholesterol 28 mg/dL (0-40)
[2021-08-26 12:02] LABS: Direct LDL Cholesterol 89.09 mg/dL (100-129)
[2021-08-26 12:08] LABS: Free T4 (Free Thyroxine) 1.14 ng/dl (0.78-2.19)
[2021-08-26 12:22] LABS: Thyroid Stimulating Hormone 2.11 uIU/mL (0.465-4.68)
== END ==
PROVIDERS: Visit Provider Urology
DX: I25.10 Atherosclerotic heart disease of native coronary artery without angina pectoris (principal); I11.9 Hypertensive heart disease without heart failure; E11.9 Type 2 diabetes mellitus without complications; E78.5 Hyperlipidemia, unspecified; I07.1 Rheumatic tricuspid insufficiency; I34.0 Nonrheumatic mitral (valve) insufficiency; I65.29 Occlusion and stenosis of unspecified carotid artery; R60.0 Localized edema; E66.9 Obesity, unspecified; Z95.1 Presence of aortocoronary bypass graft; Z79.84 Long term (current) use of oral hypoglycemic drugs; Z68.37 Body mass index [BMI] 37.0-37.9, adult
CPT/HCPCS: 36415; 80048; 80061; 80076; 84439; 84443; 85025